=== PATIENT | male | born 1970 | race African-American/Black ===

== ENCOUNTER 2018-11-27 13:35 | Inpatient (IN) ==
[2018-11-27 14:04] LABS: EOS# 0.01 X1000 (0.0-0.7); EOS% 0.5 % (0.0-10.0); HEMATOCRIT 39.2 % (42.0-52.0); HEMOGLOBIN 13.7 g/dL (14.0-18.0); LYMPH# 0.36 X1000 (1.2-3.4); LYMPH% 17.7 % (20.5-51.1); MCH 28.8 PG (27-31); MCHC 34.9 g/dL (33-37); MCV 82.4 FL (81-99); MONO# 0.18 X1000 (0.11-0.59); MONO% 8.9 % (1.7-9.3); MPV 13.2 FL (7.4-10.4); NEUT# 1.48 X1000 (1.4-6.5); NEUT% 72.9 % (42.2-75.2); PLT 131 X1000 (130-400); RBC 4.76 XMIL (4.7-6.1); RDW 12.1 % (11.5-14.5); WBC 2.03 X1000 (4.8-10.8)
[2018-11-27 14:19] LABS: BILIRUBIN URINE NEGATIVE (NEGATIVE); BLOOD URINE NEGATIVE (NEGATIVE); CLARITY CLEAR (CLEAR); COLOR YELLOW; KETONE URINE TRACE mg/dL (NEGATIVE); LEUKOCYTES URINE NEGATIVE (NEGATIVE); NITRITE URINE NEGATIVE (NEGATIVE); PH URINE 6.5; PROTEIN URINE NEGATIVE (NEGATIVE); UROBILINOGEN URINE NORMAL
[2018-11-27 14:21] LABS: URINE EPITHELIAL CELLS <10 /HPF (<10); URINE SOURCE CLEAN CATCH
[2018-11-27 14:28] LABS: ALBUMIN 4.4 g/dL (3.5-5.0); CALCIUM 9.7 mg/dL (8.8-10.2); CREATININE 1.3 mg/dL (0.7-1.2); POTASSIUM 5.1 mmol/L (3.5-5.1); TOTAL BILIRUBIN 0.8 mg/dL (0.20-1.00); TOTAL PROTEIN 7.9 g/dL (6.3-8.3)
[2018-11-27] MEDS ORDERED: HUMULIN R (PARKWAY) IV ONE (15:15)
[2018-11-27] MEDS ORDERED: NS 1,000 ML IV ONE ×2 (15:16→15:50)
[2018-11-27] MEDS ORDERED: ZOFRAN IV PRN ×2 (15:19→15:50)
[2018-11-27] MEDS ORDERED: NS 1,000 ML IV SCH ×3 (15:30→18:15)
[2018-11-27 15:44] LABS: HEMOGLOBIN A1C 8.4 % (4.8-6.0)
[2018-11-27] MEDS ORDERED: HUMULIN R 100 UNIT in NS 100 ML SUBQ SCH (16:00)
[2018-11-27] MEDS ORDERED: D50W SYRINGE IV SCH (16:00)
[2018-11-27] MEDS ORDERED: HUMULIN R 100 UNIT in NS 100 ML IV SCH (16:00)
--- NOTE | 2018-11-27 16:12 | HISTORY AND PHYSICAL ---
PRIMARY CARE PHYSICIAN: Dr. Leon,. NEUROLOGIST: Dr. Putnam. CHIEF COMPLAINT: Nausea and a funny taste in his mouth for 1 week that has progressively worsened. HISTORY OF PRESENTING ILLNESS: This is a 48-year-old male, who presents to the [facility] ER with complaints of nausea x1 week and a "funny"taste" in his mouth. States he has also had frequent urination and polydipsia. He states that he was in [facility] about 2 weeks ago with an MS exacerbation, and was placed on high-dose steroids, and then went home on prednisone taper that he has not completed at this time. He states he has also felt dizzy, had some blurred vision. When he arrived to the emergency room, his blood sugar was 801 with an anion gap of 16. The sodium was 130, creatinine was 1.3. His white blood cell count is low at 2.03, but he has a history of chronic neutropenia and is followed by Dr. Vigil, so he will be admitted to the intensive care unit for new onset diabetes that is hyperosmolar nonketotic. PAST MEDICAL HISTORY: Chronic neutropenia and MS. PAST SURGICAL HISTORY: A hernia repair and a left kidney donation. FAMILY HISTORY: His mother and brother have diabetes, and his father has lung cancer. SOCIAL HISTORY: Currently lives alone. Denies any tobacco, alcohol or illicit drug use. ALLERGIES: Penicillin. HOME MEDICATIONS: We will need to obtain a current list and restart as appropriate. I will place an order for nursing to update and confirm home medications. LABORATORY DATA: Showed a white blood cell count of 2.03, hemoglobin 13.7, hematocrit 39.2, platelets 131. Sodium 130, potassium 5.1, chloride 89, CO2 24, anion gap of 16. BUN of 16, creatinine 1.3, glucose of 801. Amylase 66, lipase 34. Urinalysis was negative. REVIEW OF SYSTEMS: He denied any fever, chills. He has had some blurred vision, dizziness. Denied any chest pain, coughing, shortness of breath. He has had nausea, polyuria, polydipsia. Denied any constipation, diarrhea, burning or hurting with urination. PHYSICAL EXAMINATION: VITAL SIGNS: On arrival he had a temperature of 98.3 degrees, pulse 94, respirations 16, blood pressure 113/74, satting 97% on room air. GENERAL: This is a 48-year-old, male, who is lying in the bed and answers questions appropriately. HENT: Normocephalic and atraumatic. Normal ENT inspection. Oropharynx and nares are clear. EYES: Pupils are equal, round, reactive to light and accommodation. Extraocular movements are intact. NECK: Normal inspection, normal range of motion. LUNGS: Clear to auscultation bilaterally with equal lung expansion and chest wall movement. HEART: With regular rate and rhythm. No murmurs, rubs, or gallops. ABDOMEN: Soft, nontender, nondistended. Bowel sounds are present x4 quadrants. MUSCULOSKELETAL: He has 5/5 strength x4 extremities. NEUROLOGICAL: Cranial nerves 2-12 appear grossly intact. ASSESSMENT: 1. Hyperosmolar nonketotic hyperglycemia. 2. New onset diabetes type 2. 3. Recent multiple sclerosis exacerbation requiring high-dose steroids. 4. Chronic neutropenia. PLAN: He will be admitted to the intensive care unit, held n.p.o. We are going to give two 1000 mL boluses of normal saline, then normal saline at 150 mL an hour, place him on an insulin drip per protocol. Fingerstick blood sugars per the protocol Zofran 4 mg IV q. 4 hours p.r.n. We are going to check a hemoglobin A1c and recheck a CBC, BMP in the a.m. Further orders after seen by attending. Dictated by LIZET Arias for Johanne Barkdsale MD cc: LIZET Arias MD Nidhi Jindal, MD Christopher C. Laganke, MD
[2018-11-27 18:15] LABS: BE 1.3 mmoll (-3.0-3.0); BLOOD TYPE ARTERIAL; HCO3-(ACT) 25.9 mmoll (20.0-26.0); METHB 1.1 % (0.0-1.5); O2(CT) 17.5 mL/dL (15.0-23.0); O2HB 94.6 % (95.0-99.0); PCO2(98.6) 40 mmHg (35-45); PO2(98.6) 80 mmHg (60-100); SAMPLE BLOOD; SAO2 97.1 % (95.0-100.0); THB 13.1 g/dL (11.5-17.4); pH(98.6) 7.42 (7.35-7.45)
[2018-11-27 18:16] LABS: MODALITY ROOM AIR
[2018-11-27 18:17] LABS: ALLEN TEST NO
[2018-11-27 18:45] LABS: AGAP 12; BUN 13 mg/dL (8-22); CALCIUM 9.1 mg/dL (8.8-10.2); CHLORIDE 103 mmol/L (98-107); COSMO 292; CREATININE 1.1 mg/dL (0.7-1.2); ESTIMATED GFR > 60; GLUCOSE 355 mg/dL (70-104); MAGNESIUM 2.3 mg/dL (1.5-2.7); PHOSPHORUS 1.7 mg/dL (2.7-4.5); POTASSIUM 4.3 mmol/L (3.5-5.1); SODIUM 139 mmol/L (136-145); TCO2 24 mmol/L (25-35)
[2018-11-27 18:57] LABS: HEMOGLOBIN A1C 8.3 % (4.8-6.0)
[2018-11-27] MEDS ORDERED: NS IV PRN (19:37)
[2018-11-27] MEDS ORDERED: SODIUM PHOSPHATE IV PRN (19:37)
[2018-11-27] MEDS ORDERED: NEUTRA-PHOS PO PRN (19:42)
[2018-11-27] MEDS ORDERED: TUMS PO PRN (19:48)
[2018-11-27] MEDS ORDERED: CALCIUM GLUCONATE 2 GM in D5W 100 ML IV PRN (19:51)
[2018-11-27] MEDS ORDERED: MAGNESIUM SULFATE 2 GM in STERILE WATER INJ. 50 ML IV PRN (19:55)
[2018-11-27] MEDS ORDERED: POTASSIUM CHLORIDE 20% LIQUID PO PRN ×2 (20:00→20:02)
--- NOTE | 2018-11-27 21:12 | HISTORY AND PHYSICAL ---
ADDENDUM: I saw the patient [id number] and fully agree with the assessment and plan of nurse practitioner Elaine Kendall. This is a 48-year-old gentleman who was found to have uncontrolled diabetes with hyperosmolar nonketotic condition. His blood glucose levels were found to be above 800 when he presented to the emergency department with nausea and polydipsia along with polyuria. He is known to have multiple sclerosis and has been getting steroids recently which are most likely responsible for his elevated glucose levels. He is going to be admitted to the intensive care unit and we will give him judicious IV fluids along with IV insulin as per protocol. We will monitor his electrolytes and also give him a clear liquid diet at this time. We will obtain hemoglobin A1c and blood gases as well. Further recommendations will be as per hospital course. Please see chart for all the protocols and other details. cc: Johanne Barksdale MD
[2018-11-28 02:35] LABS: AGAP 12; BUN 11 mg/dL (8-22); CALCIUM 8.6 mg/dL (8.8-10.2); CHLORIDE 103 mmol/L (98-107); COSMO 286; CREATININE 1.1 mg/dL (0.7-1.2); ESTIMATED GFR > 60; GLUCOSE 122 mg/dL (70-104); MAGNESIUM 2.2 mg/dL (1.5-2.7); POTASSIUM 3.7 mmol/L (3.5-5.1); SODIUM 143 mmol/L (136-145); TCO2 27 mmol/L (25-35)
[2018-11-28 08:10] LABS: AGAP 10; BUN 10 mg/dL (8-22); CALCIUM 8.3 mg/dL (8.8-10.2); CHLORIDE 106 mmol/L (98-107); COSMO 282; ESTIMATED GFR > 60; GLUCOSE 101 mg/dL (70-104); MAGNESIUM 2.1 mg/dL (1.5-2.7); PHOSPHORUS 3.1 mg/dL (2.7-4.5); POTASSIUM 3.7 mmol/L (3.5-5.1); SODIUM 142 mmol/L (136-145); TCO2 26 mmol/L (25-35)
[2018-11-28 08:18] LABS: EOS# 0.04 X1000 (0.0-0.7); HEMATOCRIT 33.1 % (42.0-52.0); HEMOGLOBIN 11.4 g/dL (14.0-18.0); LYMPH# 1.09 X1000 (1.2-3.4); LYMPH% 53.4 % (20.5-51.1); MCHC 34.4 g/dL (33-37); MCV 84.2 FL (81-99); MONO# 0.33 X1000 (0.11-0.59); MONO% 16.2 % (1.7-9.3); MPV 11.9 FL (7.4-10.4); NEUT# 0.58 X1000 (1.4-6.5); NEUT% 28.4 % (42.2-75.2); PLT 119 X1000 (130-400); RBC 3.93 XMIL (4.7-6.1); RDW 12.3 % (11.5-14.5); WBC 2.04 X1000 (4.8-10.8)
[2018-11-28] MEDS: NS 1,000 ML IV SCH (11:57)
[2018-11-28] MEDS: HUMALOG (PARKWAY) SUBQ SCH ×3 (11:58→21:12)
--- NOTE | 2018-11-28 12:36 | PROGRESS NOTE ---
DATE: 11/28/2018 SUBJECTIVE: Patient denies having any acute complaints this morning. He feels better. OBJECTIVE: Vital Signs: Temperature 98.2 degrees, pulse 68 per minute, respiratory rate 18 per minute, blood pressure 104/69, pulse oximetry 97% on room air. General: Patient is alert and oriented x3. He does not appear to be in any acute distress. Cardiovascular System: First and second heart sounds are audible without any murmurs or gallops. Respiratory System: No respiratory distress noted. Bilateral lung air entry is good without any rales or rhonchi. Gastrointestinal: Abdomen is soft and nondistended. Normal bowel sounds are present. DIAGNOSTIC DATA: CBC shows WBC count of 2.04, hemoglobin 11.4, hematocrit 33.1, and platelet count of 119,000. Basic metabolic panel is within normal limits. His glucose levels have been ranging between 90 and 200 most of the times. IMPRESSION: 1. Hyperosmolar nonketotic hyperglycemia. That has now significantly improved. 2. Multiple sclerosis. PLAN: The patient will be transferred to regular Medical/Surgical floor, and we are going to discontinue IV insulin drip. He will get lispro insulin subcutaneously as per protocol, and we are going to continue with IV fluids of normal saline at 100 mL an hour. We are also going to advance diet to diabetic diet once we see that he tolerates his full liquid diet this morning. Further recommendations will be as per hospital course. cc: Johanne Barksdale MD
[2018-11-28] MEDS ORDERED: TYLENOL PO PRN (18:26)
[2018-11-29] MEDS: NS 1,000 ML IV SCH ×2 (01:40→06:29)
[2018-11-29] MEDS: HUMALOG (PARKWAY) SUBQ SCH ×2 (06:27→11:48)
[2018-11-29 07:49] LABS: EOS# 0.08 X1000 (0.0-0.7); EOS% 4.4 % (0.0-10.0); HEMOGLOBIN 11.6 g/dL (14.0-18.0); LYMPH# 1.12 X1000 (1.2-3.4); LYMPH% 61.9 % (20.5-51.1); MCH 28.6 PG (27-31); MCHC 34.1 g/dL (33-37); MONO# 0.28 X1000 (0.11-0.59); MONO% 15.5 % (1.7-9.3); MPV 12.4 FL (7.4-10.4); NEUT# 0.33 X1000 (1.4-6.5); NEUT% 18.2 % (42.2-75.2); PLT 120 X1000 (130-400); RBC 4.05 XMIL (4.7-6.1); RDW 12.2 % (11.5-14.5); WBC 1.81 X1000 (4.8-10.8)
[2018-11-29] MEDS ORDERED: GLUCOPHAGE PO SCH (08:00)
[2018-11-29 08:08] LABS: AGAP 9; BUN 8 mg/dL (8-22); CALCIUM 8.3 mg/dL (8.8-10.2); CHLORIDE 103 mmol/L (98-107); COSMO 276; ESTIMATED GFR > 60; GLUCOSE 193 mg/dL (70-104); POTASSIUM 3.9 mmol/L (3.5-5.1); SODIUM 136 mmol/L (136-145); TCO2 24 mmol/L (25-35)
[2018-11-29 09:13] LABS: LYMPHS 72 % (21-51); MONO 8 % (1-9); SEGS 20 % (42-75)
[2018-11-29 11:46] VITALS: BP 123/68
--- NOTE | 2018-11-30 05:18 | DISCHARGE SUMMARY ---
ADMISSION DATE: 11/27/2018 DISCHARGE DATE: 11/29/2018 DISCHARGE DIAGNOSES: 1. New onset diabetes. 2. Multiple sclerosis. He has been on high-dose steroids, which is likely contributing to diabetes. 3. Hyperosmolar nonketotic hyperglycemia, resolved. 4. Chronic neutropenia, followed by Dr. Vigil. 5. Others. CONSULTATIONS: None. PROCEDURES: None. BRIEF HOSPITAL COURSE: The patient was initially admitted to the ICU due to markedly elevated blood sugars. He was not in DKA. He was transferred to the floor. We advanced his diet. He tolerated a full diet. Currently he is awake, alert. He is in no distress. DISPOSITION: Patient will be discharged home. Blood sugars are still mildly elevated in the 200s. He is noted to have significant neutropenia but he has been followed for this in the past. We will discharge him home, have a open hearth furnace operator helper come by and educate him on diabetic diet. We will continue to follow up with his primary care. We will start Glucophage. He will follow up outpatient with primary care of choice. cc: Frankie Allen MD
== END 2018-11-29 15:37 | disposition home or self-care (01) | DRG 639 ==
LOC: P.ED 13:35 → SUATTDRO 15:30 → P.ICU 15:30 → P.MEDSURG 11-28 12:56
PROVIDERS: ATTEND Family Medicine
CPT/HCPCS: 80048; 80053; 81001; 82009; 82150; 82805; 82948; 83036; 83690; 83735; 84100; 85025; 96361; 96374; 99284; A9270; J1815; J2405; J7030; XXXXX